=== PATIENT | male | born 1995 | race Hispanic/Latino ===

== ENCOUNTER 2020-10-18 22:10 | Emergency (ER) | payer OTHER, SELFPAY ==
--- NOTE | ~2020-10-18 | XR_ITS ---
EXAMINATION: XR chest 2V DATE: 10/18/2020 22:36 INDICATION: Chest tightness, weakness and palpitations. TECHNIQUE: PA and lateral views of the chest were obtained. COMPARISON: None FINDINGS: The lungs are clear with no focal airspace opacities, pulmonary edema, pleural effusion or pneumothor ax. The cardiomediastinal silhouette is normal. Visualized bones and soft tissues are unremarkable. IMPRESSION: 1. Normal chest radiograph. Reviewed, dictated and finalized at location A. IMPRESSION: 1. Normal chest radiograph.
--- NOTE | ~2020-10-18 | CT_ITS ---
EXAMINATION: CTA chest PE protocol DATE: 10/19/2020 01:00 INDICATION: Chest tightness. TECHNIQUE: Computed tomography angiography (CTA) of the chest was performed with 100 mL Omnipaque-350 intravenous contrast timed to evaluate the pulmonary arteries. Coronal maximum intensity projection 3D-reconstructions were created by the technologist. Automated exposure control and iterative reconst ruction technique were employed. The dose-length product was 850.93 mGy-cm. COMPARISON: None. FINDINGS: There is mild dependent atelectasis in the lungs. No pleural effusion. The heart size is no rmal. No pericardial effusion. There is no pulmonary embolus. The bones are unremarkable. IMPRESSION: 1. No pulmonary embolus. Reviewed, dictated and finalized at location A. IMPRESSION: 1. No pulmonary embolus.
[2020-10-18 22:15] VITALS: BP 156/89; PULSE 118; RESP 20; TEMP 36.7; O2SAT 99
--- NOTE | 2020-10-18 22:18 | ECG_ITS ---
Measurements Intervals [place] Rate: 116 P: 48 GA: 141 QRS: 58 QRSD: 89 T: 11 QT: 285 QTc: 396 Interpretive Statements SINUS TACHYCARDIA POSSIBLE LEFT ATRIAL ENLARGEMENT BASELINE ARTIFACT- V4-V5 ABNORMAL ECG Electronically Signed On 10-19-2020 6:40:55 CDT by Manuel Burch D.O.
[2020-10-18 22:35] LABS: Basophils Percent Auto 0.1 % (0.2-1.2); Eosinophils Percent Auto 0.1 % (0-4.4); Hematocrit 46.2 % (42.0-52.0); Hemoglobin 15.7 g/dL (14.0-18.0); Immature Granulocyte Absolute 0.05 K/mm3 (0.00-0.031); Immature Granulocyte Percent A 0.3 % (0-0.5); Lymphocytes Absolute Auto 0.82 K/mm3 (0.9-3.2); Lymphocytes Percent Auto 5.7 % (18.3-44.2); Mean Corpuscular Hemoglobin 30.4 pg (26-34); Mean Corpuscular Volume 89.5 fl (80-100); Mean Platelet Volume 9.6 fl (7.4-10.4); Monocytes Absolute Auto 1.1 K/mm3 (0.1-0.6); Monocytes Percent Auto 7.6 % (2.6-8.5); Neutrophils Absolute Auto 12.4 K/mm3 (1.3-6.7); Neutrophils Percent Auto 86.2 % (45.5-73.1); Platelet Count Result 219 k/mm3 (150-375); Red Blood Count 5.16 M/mm3 (4.6-6.20); Red Cell Distribution Width 12.4 % (11.5-14.5); White Blood Count 14.4 K/mm3 (4.5-10.0)
[2020-10-18 22:46] LABS: Anion Gap 12 mmol/L (8-16); Blood Urea Nitrogen 14 mg/dL (9-20); Calcium 9.4 mg/dL (8.4-10.2); Carbon Dioxide 23 mmol/L (22-30); Chloride 101 mmol/L (98-107); Estimated CRCL calculation 115 ml/min; Estimated Glomerular Filt Rate > 60; Glucose 123 mg/dL (75-110); Potassium 3.4 mmol/L (3.4-5.0); Prothrombin Time 12.6 Seconds (11.1-14.7); Sodium 136 mmol/L (137-145)
[2020-10-18] MEDS: ASPIRIN 81 MG CHEWABLE TABLET 324 MG PO (22:46)
[2020-10-18 22:58] LABS: Troponin I < 0.012 ng/mL (0.000-0.034)
[2020-10-18 23:14] VITALS: BP 123/80; PULSE 107; RESP 16; O2SAT 100
--- NOTE | 2020-10-18 23:46 | ED.GENADULT ---
HPI - General Adult General Chief complaint: Arrhythmia/Palpitations Stated complaint: Heart beating differently,feels tired Time Seen by Provider: 10/18/20 23:34 Source: patient Mode of arrival: ambulatory Limitations: no limitations History of Present Illness HPI narrative: Patient is a 25 year old male who presents with complaints of palpitations, chest tightness and headache starting this am. Patient also reports fever today. He denies sore throat, cough or shortness of breath. He denies exposure to Covid, patient is unvaccinated. He denies significant medical history. Patient has not taken over the counter medications for relief. MD complaint: palpitations Related Data Home Medications Medication Instructions Recorded Confirmed albuterol 10/18/20 Allergies Allergy/AdvReac Type Severity Reaction Status Date / Time No Known Allergies Allergy Mild Verified 10/18/20 22:42 Review of Systems Review of Systems: Narrative: CONSTITUTIONAL: Reports fever, denies chills, or sweats. EYES: Denies visual changes, redness, or discharge. ENT: Denies rhinorrhea, congestion, sore throat, or otalgia. CARDIOVASCULAR: Reports palpitations and chest tightness RESPIRATORY: Denies cough or dyspnea. GASTROINTESTINAL: Denies abdominal pain, nausea, vomiting, or diarrhea. GENITOURINARY: Denies dysuria or hematuria. SKIN: Denies rash or itching. MUSCULOSKELETAL: Denies back pain, joint pain, or myalgia. NEUROLOGIC: Reports headache, denies numbness, dizziness, or weakness. PSYCHIATRIC: Denies anxiety or depression. PMFSH Past Medical History Medical History Asthma Surgical History Surgical History History of orthopedic surgery Social History Social History (Updated 10/18/20 @ 23:52 by BRAD Hsu) Smoking status: Former smoker Alcohol intake: current Substance use: never Living arrangements: with family Exam Narrative: Exam Narrative: GENERAL: Well-appearing, well-nourished, and in no acute distress. HEAD: Normocephalic, atraumatic. EYES: EOMI. No redness or drainage. Conjunctiva are normal. ENT: Mucous membranes pink and moist. CHEST: No respiratory distress. Clear to auscultation. HEART: Regular rate and rhythm. No murmur appreciated. Normal peripheral pulses. EXTREMITIES: Normal range of motion. No edema. SKIN: Warm, dry, no rash. NEURO: No focal deficits. Alert and oriented x3. Gait steady. PSYCH: Normal affect. No signs of depression or anxiety. Course Vital Signs Vital signs: Vital Signs Temperature 36.7 C 10/18/20 22:15 Pulse Rate 118 H 10/18/20 22:15 Respiratory Rate 20 10/18/20 22:15 Blood Pressure 156/89 H 10/18/20 22:15 Pulse Oximetry 99 10/18/20 22:15 Temperature 38.3 C H 10/19/20 00:32 Pulse Rate 95 10/19/20 01:52 Respiratory Rate 16 10/19/20 01:52 Blood Pressure 120/60 10/19/20 01:52 Pulse Oximetry 99 10/19/20 01:52 Medical Decision Making MDM Narrative Medical decision making narrative: Patient's CT negative for PE or pneumonia, troponin x 2 negative. Patient has mild leukocytosis. Patient tested for Covid. Patient is aware of quarantine until results are provided. Patient is aware of red flags and when to return to the ED for further evaluation. Patient is stable for discharge to home with outpatient follow up as needed. Differential Diagnosis Differential Diagnosis: Pulmonary embolism, viral illness, Covid, bronchitis, pneumonia Medical Records Medical records reviewed: Yes I reviewed the external patient's medical records. Vital Signs Vital Signs: Vital Signs Temperature 36.7 C 10/18/20 22:15 Pulse Rate 118 H 10/18/20 22:15 Respiratory Rate 20 10/18/20 22:15 Blood Pressure 156/89 H 10/18/20 22:15 Pulse Oximetry 99 10/18/20 22:15 Temperature 38.3 C H 10/19/20 00:32 Pulse Rate 95 10/19/20 01:52 Res
[2020-10-19 00:05] LABS: D Dimer 0.67 ug/mL (<0.48)
[2020-10-19 00:32] VITALS: BP 132/77; PULSE 114; RESP 20; TEMP 38.3; O2SAT 100
[2020-10-19 01:41] LABS: Troponin I < 0.012 ng/mL (0.000-0.034)
[2020-10-19 01:52] VITALS: BP 120/60; PULSE 95; RESP 16; O2SAT 99
[2020-10-19 19:11] LABS: SARS-CoV-2 RNA PCR Negative
== END 2020-10-19 02:09 | disposition home or self-care (01) ==
PROVIDERS: Emergency Medicine; Emergency Provider Nurse Practitioner
DX: B34.9 Viral infection, unspecified (principal); Z20.822 Contact with and (suspected) exposure to COVID-19; J45.909 Unspecified asthma, uncomplicated; Z87.891 Personal history of nicotine dependence; R00.0 Tachycardia, unspecified; R94.31 Abnormal electrocardiogram [ECG] [EKG]
CPT/HCPCS: 36415; 71046; 71275; 80048; 84484; 85025; 85380; 85610; 85730; 93005; 96374; 99284; A9270; C9803; J0131; Q9967; U0003; U0005